=== PATIENT | male | born 1955 | race Caucasian/White ===

== ENCOUNTER 2018-08-04 09:59 | Emergency (ER) | payer OTHER ==
[2018-08-04] MEDS ORDERED: EPINEPHrine 0.1 MG/ML DISP.SYRIN IVP STA ×4 (10:08→10:18)
[2018-08-04] MEDS ORDERED: 0.9 % SODIUM CHLORIDE 1,000 ML IV ONE (10:08)
[2018-08-04] MEDS ORDERED: SODIUM BICARBONATE 5 MEQ/10 ML PED. IVP ONE (10:14)
[2018-08-04] MEDS ORDERED: SODIUM BICARBONATE 50 MEQ/50 ML SYRINGE ONE ×2 (10:55→11:01)
[2018-08-04] MEDS ORDERED: EPINEPHrine 0.1 MG/ML DISP.SYRIN IVP ONE (10:56)
[2018-08-04 11:01] LABS: BASOPHILS % 2.3 (0.0-1.5); EOSINOPHILS % 0.9 % (0.0-6.8); MEAN CORPUSCULAR HEMOGLOBIN 34.3 pg (28.0-34.0); MONOCYTES % 10.2 % (0.0-11.0); NEUTROPHILS # 9.1 # k/uL (1.4-7.7)
[2018-08-04 11:02] LABS: eGFR (Non-African) > 60
--- NOTE | 2018-08-04 11:26 | ED Physician Documentation ---
Critical Care - HISTORIAN Historian: paramedics - HPI Chief Complaint: Dyspnea Additional Information: EMS report by [facility] STEAM PRESS OPERATOR stated patient had been sick about a week- they arrived on the scene and patient was short of breath with oxygen saturation of 65%- HFN treatment was given and patient placed on O2- EMTP stated that O2 sat had improved and was 95%- tachycardia on the monitor with rate in the 90s- 2 min ETA. Upon EMS arrival patient is unresponsive GCS 3- agonal respirations- not responsive- patient is morbidly obese > 350 lbs- anesthesiology and RT immediately paged for assistance. Patient moved from EMS stretcher to ER cot- not breathing- RT started bagging patient with 100% oxygen- pt bradycardic in the 30s- no pulse palpated- CPR started. See core drill operator note for detail Code report. According to EMS patient rarely went to the doctor- only hx identified was COPD, AFib, Gout, HTN. The neighbor called EMS. Onset: days ago (according to neighbor pt has been sick about a week) Further Comments: no - INITIAL FINDINGS BY MEDICS Mentation: Unresponsive Respirations: Decreased Respirations Rhythm: PEA-lily (when moved to the ER cot due to lack of oxygen- immediately bagged with 100% oxygen) - PRE-HOSPITAL TREATMENT Oxygen: oxygen CRP/Thumper: No IV Access: No IV Fluids: No Vasopressin Given?: No Amiodorone Given?: No Lidocaine Given?: No - ROS CONST: recent illness EYES/ENT: none (N/A) CVS/RESP: shortness of breath MS/SKIN/LYMPH: other (skin is pale/dusky) NEURO/PSYCH: none (unresponsive) - PAST HX Lung, Cardiac, DM: COPD, hypertension Allergies/Adverse Reactions: Allergies Allergy/AdvReac Type Severity Reaction Status Date / Time No Allergy Information Allergy Unverified 08/04/18 12:11 Available Home Medications: Ambulatory Orders Medication Instructions Recorded Unobtainable 08/04/18 - SOCIAL HX Smoking History: other (unknown) Alcohol Use: other (unknown) Drug Use: other (unknown) - FAMILY HX Family History: No (unknown) Procedures Intubation Method: orotracheal (intubation successful by Jey WOODWARD) Tube Size (cm): 8.0 Breath Sounds after Intubation: equal Intubation Complications: no complications Post Intubation Xray: No (CPR in progress) ED Results Lab/Radiology - Lab Results Lab Results: Lab Results 08/04/18 08/04/18 08/04/18 Unknown Unknown 10:52 WBC 13.40 K/ul H K/ul (4.00-12.00) RBC 5.77 M/ul H M/ul (3.90-5.20) Hgb 19.8 g/dL H g/dL (12.0-18.0) Hct 59.3 % H % (37.0-53.0) MCV 103.0 fl H fl (80.0-100.0) MCH 34.3 pg H pg (28.0-34.0) MCHC 33.4 g/dL g/dL (30.0-36.0) RDW 12.5 % % (11.3-14.3) Plt Count 186 K/mm3 K/mm3 (130-400) Neut % (Auto) 67.7 % % (39.0-79.0) Lymph % (Auto) 18.9 % % (16.0-50.0) Brule % (Auto) 10.2 % % (0.0-11.0) Eos % (Auto) 0.9 % % (0.0-6.8) Baso % (Auto) 2.3 H (0.0-1.5) Neut # (Auto) 9.1 # k/uL H # k/uL (1.4-7.7) Lymph # (Auto) 2.5 # k/uL # k/uL (0.6-4.0) Brule # (Auto) 1.4 # k/uL H # k/uL (0.0-0.9) Eos # (Auto) 0.1 # k/uL # k/uL (0.0-0.6) Baso # (Auto) 0.3 # k/uL # k/uL (0.0-0.5) Sodium 140 mmol/L mmol/L (136-145) Potassium 3.4 mmol/L L mmol/L (3.5-5.1) Chloride 90 mmol/L L mmol/L (98-107) Carbon Dioxide > 40 mmol/L H mmol/L (22-30) BUN 152 mg/dL H mg/dL (9-20) Creatinine 0.95 mg/dL mg/dL (0.66-1.25) Est GFR ( Amer) > 60 (60 - ) Est GFR (Non-Af Amer) > 60 (60 - ) Glucose 183 mg/dL H mg/dL (74-106) Calcium 8.7 mg/dL mg/dL (8.4-10.2) Total Bilirubin 1.0 mg/dL mg/dL (0.2-1.3) AST 56 U/L H U/L (15-46) ALT 37 U/L U/L (13-69) Alkaline Phosphatase 96 U/L U/L (38-126) Creatine Kinase 93 U/L U/L (55-170) CK-MB (CK-2) 7.1 ng/mL H ng/mL (0.0-5.6) Troponin I 0.12 ng/mL H ng/mL (0.03-0.06) NT-Pro-B Natriuret Pep 6708.0 pg/mL H pg/mL (15.0-125.0) Total Protein 8.2 g/dL g/dL (6.3-8.2) Albumin 4.6 g/dL g/dL (3.5-5.0) - Orders Orders: ED Orders Category Date Time Status BNP [NT-proBNP] Stat Lab 08/04/18 Completed CBC/PLATELET/DIFF Routine Lab 08/04/18 10:52 Completed CKMB Stat Lab 08/04/18 Completed CMP Routine Lab 08/04/18 Completed CREATINE KINASE Routine Lab 08/04/18 Completed TROPONIN I (cTnI) Stat Lab 08/04/18 Completed 0.9 % Sodium Chloride [Normal Saline] 1,000 ml Med 08/04/18 10:08 Discontinued IV Q1H EPINEPHrine [Adrenalin] Med 08/04/18 10:08 Discontinued 0.1 mg IVP NOW STA EPINEPHrine [Adrenalin] Med 08/04/18 10:12 Discontinued 0.1 mg IVP NOW STA EPINEPHrine [Adrenalin] Med 08/04/18 10:15 Discontinued 0.1 mg IVP NOW STA EPINEPHrine [Adrenalin] Med 08/04/18 10:18 Discontinued 0.1 mg IVP NOW STA EPINEPHrine [Adrenalin] Med 08/04/18 10:56 Discontinued 0.2 mg IVP .STK-MED ONE Sodium Bicarbonate Med 08/04/18 10:55 Discontinued 50 meq .ROUTE .STK-MED ONE Sodium Bicarbonate Med 08/04/18 11:01 Discontinued 50 meq .ROUTE .STK-MED ONE Sodium Bicarbonate Med 08/04/18 10:14 Discontinued 50 meq IVP STAT ONE Discharge Clincal Impression: , Cardiopulmonary arrest Preliminary Cause of : Respiratory Referrals: Primary Doctor,No [Primary Care Provider] - 2 Days Comments: Discussion with Code Team about efforts made and no positive results- it was decided to stop CPR- Time of 10:18 Spoke with Brothego Arcadio who is on his way and will contact the other brothers. Arcadio stated that Bryon did not take care of himself and they knew one day they would get this call. Spoke with BrotherKaylee Ervin when he arrived Patient was accepted by [facility] Disposition: 20 Decision to Admit: NO Decision Time: 10:18
[2018-08-04 12:10] VITALS: BP 145/112
[2018-08-04] MEDS ORDERED: RED CRASH CART TAGS 1 EACH MC ONE (12:46)
[2018-08-04] MEDS ORDERED: SUCCINYLCHOLINE CHLORIDE 200 MG/10 ML VIAL ONE (13:36)
== END 2018-08-04 18:13 | disposition expired ==
LOC: EDBD 10:08 → ED 10:08
DX: I46.9 Cardiac arrest, cause unspecified (principal)
CPT/HCPCS: 31500; 36415; 80053; 82550; 82553; 83880; 84484; 85025; 96374; 96375; 99285; J0171; J7030; S1016